=== PATIENT | male | born 1975 | race Caucasian/White ===

== ENCOUNTER 2018-05-02 19:08 | Emergency (ER) | payer MEDICAID ==
[~2018-05-02] VITALS: Ht 172.7 cm; Wt 92.4 kg
[~2018-05-02 19:08] MED LIST: CLOZ100T31 PO; INDLA60C PO; METF-436 PO; OMEP40CA37 PO; OXYB15TA PO; PROP40TA7 PO; RISP0.5T3 PO; TERA5CAP4 PO
[2018-05-02] MEDS ORDERED: LORA1TAB PO (20:00)
[2018-05-02] MEDS ORDERED: LORazepam 1 MG tablet PO ONE (20:20)
[2018-05-02 21:30] LABS: URINE AMPHETAMINE SCREEN NEGATIVE (Neg); URINE BARBITUATE SCREEN NEGATIVE (Neg); URINE BENZODIAZEPINES SCREEN NEGATIVE (Neg); URINE CANNABINOID SCREEN NEGATIVE (Neg); URINE COCAINE SCREEN NEGATIVE (Neg); URINE METHADONE SCREEN NEGATIVE (Neg); URINE OPIATE SCREEN NEGATIVE (Neg); URINE PHENCYCLIDINE SCREEN NEGATIVE (Neg)
[2018-05-02 22:02] LABS: ALBUMIN/GLOBULIN RATIO 1.1 (1.1-1.5); ANION GAP 9 (8-16); ASPARTATE AMINO TRANSFERASE 16 U/L (10-37); BILIRUBIN,TOTAL 0.4 MG/DL (0.1-1.0); BLOOD UREA NITROGEN 4 MG/DL (7-18); BUN/CREATININE RATIO 4.3 (5.4-32.0); CALCIUM 8.9 MG/DL (8.5-10.1); CHLORIDE 100 MMOL/L (99-107); CREATININE 0.92 MG/DL (0.60-1.10); GLUCOSE 79 MG/DL (70-104); POTASSIUM 3.7 MMOL/L (3.5-5.1); SODIUM 135 MMOL/L (135-145); TOTAL CARBON DIOXIDE 26.4 MMOL/L (24-32); TOTAL PROTEIN 7.6 G/DL (6.4-8.2); eGFR 90 ML/MIN
[2018-05-02 22:03] LABS: ALANINE AMINOTRANSFERASE 35 U/L (12-78); ALKALINE PHOSPHATASE 90 IU/L (46-116)
[2018-05-02 22:07] LABS: BASOPHILS % (AUTO) 0.4 % (0-1); EOSINOPHILS # (AUTO) 0.2 X10'3 (0-0.9); EOSINOPHILS % (AUTO) 1.7 % (0-6); HEMATOCRIT 40.4 % (42.0-52.0); HEMOGLOBIN 13.6 g/dl (14.0-17.9); LYMPHOCYTES # (AUTO) 3.6 X10'3 (1.1-4.8); LYMPHOCYTES % (AUTO) 37.1 % (21-51); MEAN CORPUSCULAR HEMOGLOBIN 30.5 PG (27.0-31.0); MEAN CORPUSCULAR HGB CONC 33.7 % (33.0-36.5); MEAN CORPUSCULAR VOLUME 90.5 FL (78-98); MONOCYTES # (AUTO) 1.2 X10'3 (0-0.9); MONOCYTES % (AUTO) 12.4 % (2-12); NEUTROPHILS # (AUTO) 4.6 X10'3 (1.8-7.7); NEUTROPHILS % (AUTO) 48.4 % (42-75); PLATELET COUNT 175 X10'3 (140-440); RED BLOOD COUNT 4.46 X10'6 (4.70-6.10); RED CELL DISTRIBUTION WIDTH 14.9 % (11.5-14.5); WHITE BLOOD COUNT 9.6 X10'3 (4.5-11.0)
[2018-05-02 22:13] LABS: ETHANOL < 0.010 GM/DL (0.0-0.010)
[2018-05-03 05:45] VITALS: BP 138/88
== END 2018-05-03 05:47 | disposition home or self-care (01) ==
LOC: ER 19:08
DX: F20.9 Schizophrenia, unspecified (principal); F41.9 Anxiety disorder, unspecified; I10 Essential (primary) hypertension; E11.9 Type 2 diabetes mellitus without complications; E78.00 Pure hypercholesterolemia, unspecified; Z56.0 Unemployment, unspecified; Z91.030 Bee allergy status; Z79.84 Long term (current) use of oral hypoglycemic drugs; Z79.899 Other long term (current) drug therapy
CPT/HCPCS: 36415; 80053; 80305; 80320; 84443; 85025; 99284

== ENCOUNTER → 2018-11-26 | Outpatient (CLI) | payer MEDICAID ==
[~2018-11-26] MED LIST changes: +LORA1TAB PO
== END | disposition home or self-care (01) ==
LOC: RAD 15:22
PROVIDERS: ATTEND Psychiatry & Neurology Psychiatry
DX: R76.11 Nonspecific reaction to tuberculin skin test without active tuberculosis (principal); E10.9 Type 1 diabetes mellitus without complications; F17.200 Nicotine dependence, unspecified, uncomplicated; Z79.84 Long term (current) use of oral hypoglycemic drugs; Z79.899 Other long term (current) drug therapy
CPT/HCPCS: 71046

== ENCOUNTER 2019-03-05 19:01 | Emergency (ER) | payer MEDICAID ==
[~2019-03-05] VITALS: Ht 172.7 cm; Wt 106.8 kg
[2019-03-05] MEDS ORDERED: normal saline 1000ML IV soln IVB ONE (20:00)
[2019-03-05 23:21] VITALS: BP 122/71
== END 2019-03-05 23:24 | disposition home or self-care (01) ==
LOC: ER 19:01
DX: F10.129 Alcohol abuse with intoxication, unspecified (principal); E78.00 Pure hypercholesterolemia, unspecified; I10 Essential (primary) hypertension; E11.9 Type 2 diabetes mellitus without complications; F41.9 Anxiety disorder, unspecified; F20.9 Schizophrenia, unspecified; Z56.0 Unemployment, unspecified; Z91.030 Bee allergy status; Z79.899 Other long term (current) drug therapy; Y90.9 Presence of alcohol in blood, level not specified
CPT/HCPCS: 99283; J7030; 99281

== ENCOUNTER 2019-04-19 15:34 | Emergency (ER) | payer MEDICAID ==
[~2019-04-19] VITALS: Ht 172.7 cm; Wt 104.5 kg
[2019-04-19] MEDS ORDERED: ATOR20TA66 PO (16:39)
[2019-04-19] MEDS ORDERED: PRAZ2CAP2 PO ×2 (16:39→16:48)
[2019-04-19] MEDS ORDERED: CLOZ200T PO (16:39)
[2019-04-19] MEDS ORDERED: DIVA500T2 PO (16:39)
[2019-04-19] MEDS ORDERED: HYDR-3686 PO ×2 (16:39→16:48)
[2019-04-19] MEDS ORDERED: PRAZ1CAP5 PO ×2 (16:39→16:58)
[2019-04-19 16:40] LABS: BASOPHILS % (AUTO) 0.5 % (0-1); EOSINOPHILS # (AUTO) 0.1 X10'3 (0-0.9); EOSINOPHILS % (AUTO) 1.9 % (0-6); HEMATOCRIT 38.6 % (42.0-52.0); HEMOGLOBIN 13.3 g/dl (14.0-17.9); LYMPHOCYTES # (AUTO) 2.8 X10'3 (1.1-4.8); LYMPHOCYTES % (AUTO) 39.1 % (21-51); MEAN CORPUSCULAR HEMOGLOBIN 30.6 PG (27.0-31.0); MEAN CORPUSCULAR HGB CONC 34.4 g/dL (33.0-36.5); MEAN CORPUSCULAR VOLUME 89.1 FL (78-98); MONOCYTES # (AUTO) 0.7 X10'3 (0-0.9); MONOCYTES % (AUTO) 9.4 % (2-12); NEUTROPHILS # (AUTO) 3.5 X10'3 (1.8-7.7); NEUTROPHILS % (AUTO) 49.1 % (42-75); PLATELET COUNT 171 X10'3 (140-440); RED BLOOD COUNT 4.33 X10'6 (4.70-6.10); RED CELL DISTRIBUTION WIDTH 14.8 % (11.5-14.5); WHITE BLOOD COUNT 7.1 X10'3 (4.5-11.0)
[2019-04-19] MEDS ORDERED: OXYB5TAB11 PO (16:43)
[2019-04-19 16:54] LABS: ALANINE AMINOTRANSFERASE 36 U/L (12-78); ALBUMIN 3.8 G/DL (3.4-5.0); ALBUMIN/GLOBULIN RATIO 1.2 (1.1-1.5); ALKALINE PHOSPHATASE 94 IU/L (46-116); ANION GAP 12 (8-16); ASPARTATE AMINO TRANSFERASE 16 U/L (10-37); BILIRUBIN,TOTAL 0.4 MG/DL (0.1-1.0); BLOOD UREA NITROGEN 7 MG/DL (7-18); BUN/CREATININE RATIO 7.4 (5.4-32.0); CALCIUM 8.9 MG/DL (8.5-10.1); CHLORIDE 102 MMOL/L (99-107); CREATININE 0.94 MG/DL (0.60-1.10); GLUCOSE 121 MG/DL (70-104); SODIUM 135 MMOL/L (135-145); TOTAL CARBON DIOXIDE 20.9 MMOL/L (24-32); TOTAL PROTEIN 7.1 G/DL (6.4-8.2); eGFR 87 ML/MIN
[2019-04-19 17:03] LABS: ETHANOL < 0.010 GM/DL (0.0-0.010)
[2019-04-19 17:11] VITALS: BP 140/110
[2019-04-19 17:19] LABS: CLARITY,URINE CLEAR (Clear); COLOR,URINE STRAW (Yellow); GLUCOSE, URINE NEGATIVE (Neg); KETONES,URINE NEGATIVE (Neg); LEUKOCYTE ESTERASE ,URINE NEGATIVE (Neg); NITRITES, URINE NEGATIVE (Neg); OCCULT BLOOD,URINE NEGATIVE (Neg); PH,URINE 5.5 (4.8-8.0); PROTEIN,URINE NEGATIVE (Neg); UROBILINOGEN,URINE 0.2 E.U/dL (0.2-1.0)
--- NOTE | 2019-04-19 17:21 | NUR ---
PAGED FOR CONSULT FOR [id number]
[2019-04-19 17:25] LABS: UA COLLECTION TYPE CLN CATCH MIDSTREAM
[2019-04-19 17:28] LABS: URINE AMPHETAMINE SCREEN NEGATIVE (Neg); URINE BARBITUATE SCREEN NEGATIVE (Neg); URINE BENZODIAZEPINES SCREEN NEGATIVE (Neg); URINE CANNABINOID SCREEN NEGATIVE (Neg); URINE COCAINE SCREEN NEGATIVE (Neg); URINE METHADONE SCREEN NEGATIVE (Neg); URINE OPIATE SCREEN NEGATIVE (Neg); URINE PHENCYCLIDINE SCREEN NEGATIVE (Neg)
[2019-04-19] MEDS ORDERED: metFORMIN 500mg tablet PO SCH (17:30)
--- NOTE | 2019-04-19 19:18 | NUR ---
INFORMED THAT HE IS ON A 24 HOUR HOLD UNTIL 3 PM TOMORROW BUT THAT IT MAY CHANGE DEPENDING ON [facility]. [facility] CAME DOWN AND WILL BE EVALUATING HIM LATE THIS EVENING FOR PLACEMENT ON INVOLUNTARY HOLD.
[2019-04-19] MEDS ORDERED: oxybutynin 5mg tablet PO SCH (20:00)
[2019-04-19] MEDS ORDERED: hydrOXYzine 25 MG tablet PO SCH (20:00)
[2019-04-19] MEDS ORDERED: LORazepam 1 MG tablet PO SCH (20:00)
[2019-04-19] MEDS ORDERED: propranolol 10mg tablet PO SCH (20:00)
--- NOTE | 2019-04-19 20:55 | NUR ---
PT SEEN AND EVALUATED BY [facility]. THE PATIENT CONTINUOUSLY DENIED SI/HI, HE REPORTS FEELING DEPRESSED BUT CAME HERE TO TALK TO SOMEONE. THE PATIENT AGREED TO FOLLOW-UP W/ OUTPATIENT MENTAL HEALTH SERVICES IN THE MORNING. THE PATIENT SAYS THAT HE WILL RIDE HIS BIKE HOME AND IS EXCITED TO TAKE CARE OF HIS ANIMALS WHEN HE RETURNS HOME.
[2019-04-19] MEDS ORDERED: prazosin 1mg capsule PO SCH (21:00)
[2019-04-19] MEDS ORDERED: CLOZAPINE 100 MG TAB.RAPDIS PO SCH (21:00)
[2019-04-19] MEDS ORDERED: divalproex sodium 500mg tablet.DR PO SCH (21:00)
[2019-04-20] MEDS ORDERED: atorvastatin 20mg tablet PO SCH (08:00)
[2019-04-20] MEDS ORDERED: prazosin 1mg capsule PO SCH (08:00)
[2019-04-20] MEDS ORDERED: CLOZAPINE 100 MG TAB.RAPDIS PO SCH (08:00)
== END 2019-04-19 21:25 | disposition home or self-care (01) ==
LOC: ER 15:35
DX: R45.851 Suicidal ideations (principal); F20.9 Schizophrenia, unspecified; F22 Delusional disorders; E78.00 Pure hypercholesterolemia, unspecified; I10 Essential (primary) hypertension; E11.9 Type 2 diabetes mellitus without complications; F41.9 Anxiety disorder, unspecified; Z56.0 Unemployment, unspecified; Z79.899 Other long term (current) drug therapy
CPT/HCPCS: 36415; 80053; 80305; 80320; 81003; 84443; 85025; 99284; Q0177

== ENCOUNTER 2020-01-12 09:12 | Outpatient (CLI) | payer MEDICAID ==
[~2020-01-12 09:12] MED LIST changes: +ATOR20TA66 PO; +CLOZ200T PO; +DIVA500T2 PO; +HYDR-3686 PO; -INDLA60C PO; -OMEP40CA37 PO; -OXYB15TA PO; +OXYB5TAB16 PO; +PRAZ1CAP5 PO; +PRAZ2CAP2 PO; -RISP0.5T3 PO; -TERA5CAP4 PO
== END 2020-01-12 23:59 | disposition home or self-care (01) ==
LOC: RAD 09:12
PROVIDERS: ATTEND Psychiatry & Neurology Psychiatry
DX: R76.11 Nonspecific reaction to tuberculin skin test without active tuberculosis (principal)
CPT/HCPCS: 71046

== ENCOUNTER 2020-02-22 10:12 | Emergency (ER) | payer MEDICAID ==
[~2020-02-22] VITALS: Ht 172.7 cm; Wt 97.6 kg
[2020-02-22 10:19] VITALS: BP 124/86
[2020-02-22] MEDS ORDERED: amox tr/potassium clavulanate 875/125mg TAB PO ONE (10:35)
[2020-02-22] MEDS ORDERED: TETanus/Pertussis (Acell)/Diphther VAC/PF (Tdap-Adult) 0.5ml syringe IMVAC ONE (10:35)
[2020-02-22 10:50] LABS: CLARITY,URINE TURBID (Clear); COLOR,URINE AMBER (Yellow); GLUCOSE, URINE 250 mg/dl (Neg); KETONES,URINE 15 mg/dl (Neg); LEUKOCYTE ESTERASE ,URINE NEGATIVE (Neg); OCCULT BLOOD,URINE LARGE (Neg); PH,URINE 6.5 (4.8-8.0); PROTEIN,URINE >=300 mg/dl (Neg); UA COLLECTION TYPE CLN CATCH MIDSTREAM
[2020-02-22 10:55] LABS: NITRITES, URINE NEGATIVE (Neg)
[2020-02-22 10:56] LABS: RBC,URINE TNTC /HPF (0-2)
[2020-02-22 11:04] LABS: BACTERIA,URINE 2+ /HPF (Neg); SQUAMOUS EPITHELIAL CELL,UR FEW /LPF (FEW)
[2020-02-22 11:05] LABS: MUCUS STRANDS FEW /LPF (Neg); WBC,URINE 0-4 /HPF (0-4)
[2020-02-22 11:38] LABS: BASOPHILS # (AUTO) 0.1 X10'3 (0-0.2); BASOPHILS % (AUTO) 0.7 % (0-1); EOSINOPHILS # (AUTO) 0.1 X10'3 (0-0.9); EOSINOPHILS % (AUTO) 1.3 % (0-6); HEMATOCRIT 41.9 % (42.0-52.0); HEMOGLOBIN 14.4 g/dl (14.0-17.9); LYMPHOCYTES % (AUTO) 21.6 % (21-51); MEAN CORPUSCULAR HGB CONC 34.5 g/dL (33.0-36.5); MEAN CORPUSCULAR VOLUME 86.9 FL (78-98); MEAN PLATELET VOLUME 9.3 FL (7.4-10.4); MONOCYTES % (AUTO) 11.2 % (2-12); NEUTROPHILS # (AUTO) 5.9 X10'3 (1.8-7.7); NEUTROPHILS % (AUTO) 65.2 % (42-75); PLATELET COUNT 182 X10'3 (140-440); RED BLOOD COUNT 4.82 X10'6 (4.70-6.10); RED CELL DISTRIBUTION WIDTH 14.9 % (11.5-14.5); WHITE BLOOD COUNT 9.1 X10'3 (4.5-11.0)
[2020-02-22 12:15] LABS: ALANINE AMINOTRANSFERASE 24 U/L (12-78); ALBUMIN 3.7 G/DL (3.4-5.0); ALKALINE PHOSPHATASE 115 IU/L (46-116); ANION GAP 9 (8-16); ASPARTATE AMINO TRANSFERASE 17 U/L (10-37); BILIRUBIN,TOTAL 0.6 MG/DL (0.1-1.0); BLOOD UREA NITROGEN 12 MG/DL (7-18); BUN/CREATININE RATIO 10.3 (5.4-32.0); CHLORIDE 102 MMOL/L (99-107); CREATININE 1.17 MG/DL (0.60-1.10); GLUCOSE 138 MG/DL (70-104); POTASSIUM 3.9 MMOL/L (3.5-5.1); SODIUM 136 MMOL/L (135-145); TOTAL CARBON DIOXIDE 24.8 MMOL/L (24-32); TOTAL PROTEIN 7.5 G/DL (6.4-8.2); eGFR 67 ML/MIN
[2020-02-22] MEDS ORDERED: AMOX-422 PO (12:33)
== END 2020-02-22 12:55 | disposition home or self-care (01) ==
LOC: ER 10:13
DX: S40.811A Abrasion of right upper arm, initial encounter (principal); R31.9 Hematuria, unspecified; L03.113 Cellulitis of right upper limb; E78.00 Pure hypercholesterolemia, unspecified; I10 Essential (primary) hypertension; E11.9 Type 2 diabetes mellitus without complications; F41.9 Anxiety disorder, unspecified; F20.9 Schizophrenia, unspecified; W55.03XA Scratched by cat, initial encounter; Y93.89 Activity, other specified; Y92.89 Other specified places as the place of occurrence of the external cause; Y99.8 Other external cause status; Z56.0 Unemployment, unspecified; Z79.899 Other long term (current) drug therapy
CPT/HCPCS: 36415; 74176; 80053; 81001; 85025; 90471; 90715; 99284

== ENCOUNTER 2020-06-11 20:49 | Emergency (ER) | payer MEDICAID ==
[~2020-06-11] VITALS: Ht 172.7 cm; Wt 100.0 kg
[2020-06-11 20:52] VITALS: BP 138/94
== END 2020-06-11 21:32 | disposition home or self-care (01) ==
LOC: ER 20:49
DX: R50.9 Fever, unspecified (principal); M79.18 Myalgia, other site; R06.00 Dyspnea, unspecified; E78.00 Pure hypercholesterolemia, unspecified; I10 Essential (primary) hypertension; F41.9 Anxiety disorder, unspecified; F20.9 Schizophrenia, unspecified; Z20.828 Contact with and (suspected) exposure to other viral communicable diseases; Z60.2 Problems related to living alone; Z72.89 Other problems related to lifestyle; Z79.84 Long term (current) use of oral hypoglycemic drugs; Z79.899 Other long term (current) drug therapy
CPT/HCPCS: 36415; 99283; U0003

== ENCOUNTER 2021-01-16 14:09 | Outpatient (CLI) | payer MEDICAID | END 2021-01-16 23:59 | disposition home or self-care (01) | LOC: RAD 14:09 | PROVIDERS: ATTEND Psychiatry & Neurology Psychiatry | DX: F20.0 Paranoid schizophrenia (principal); F10.29 Alcohol dependence with unspecified alcohol-induced disorder | CPT/HCPCS: 71046 ==

== ENCOUNTER 2022-02-11 13:04 | Emergency (ER) | payer MEDICAID ==
[~2022-02-11] VITALS: Ht 172.7 cm; Wt 233.6 kg
[2022-02-11 13:11] VITALS: BP 145/97
== END 2022-02-11 13:51 | disposition home or self-care (01) ==
LOC: ER 13:05
DX: R44.3 Hallucinations, unspecified (principal); E78.00 Pure hypercholesterolemia, unspecified; I10 Essential (primary) hypertension; E11.9 Type 2 diabetes mellitus without complications; F41.9 Anxiety disorder, unspecified; Z56.0 Unemployment, unspecified; Z72.89 Other problems related to lifestyle; Z79.899 Other long term (current) drug therapy; Z91.030 Bee allergy status
CPT/HCPCS: 71045; 99283

== ENCOUNTER 2022-04-26 21:06 | Emergency (ER) | payer MEDICAID ==
[~2022-04-26] VITALS: Ht 172.7 cm; Wt 104.5 kg
[2022-04-26 22:55] LABS: BASOPHILS % (AUTO) 0.3 % (0-1); EOSINOPHILS # (AUTO) 0.1 X10'3 (0-0.9); EOSINOPHILS % (AUTO) 1.7 % (0-6); HEMOGLOBIN 13.2 g/dl (14.0-17.9); LYMPHOCYTES # (AUTO) 2.5 X10'3 (1.1-4.8); LYMPHOCYTES % (AUTO) 39.4 % (21-51); MEAN CORPUSCULAR HEMOGLOBIN 28.9 PG (27.0-31.0); MEAN CORPUSCULAR VOLUME 87.7 FL (78-98); MONOCYTES # (AUTO) 0.6 X10'3 (0-0.9); MONOCYTES % (AUTO) 9.2 % (2-12); NEUTROPHILS # (AUTO) 3.1 X10'3 (1.8-7.7); NEUTROPHILS % (AUTO) 49.4 % (42-75); PLATELET COUNT 212 X10'3 (140-440); RED BLOOD COUNT 4.56 X10'6 (4.70-6.10); RED CELL DISTRIBUTION WIDTH 15.5 % (11.5-14.5); WHITE BLOOD COUNT 6.3 X10'3 (4.5-11.0)
[2022-04-26 23:12] LABS: ALANINE AMINOTRANSFERASE 53 U/L (12-78); ALBUMIN 3.8 G/DL (3.4-5.0); ALBUMIN/GLOBULIN RATIO 1.2 (1.1-1.5); ALKALINE PHOSPHATASE 97 IU/L (46-116); ANION GAP 13 (8-16); ASPARTATE AMINO TRANSFERASE 25 U/L (10-37); BILIRUBIN,TOTAL 0.2 MG/DL (0.1-1.0); BLOOD UREA NITROGEN 7 MG/DL (7-18); BUN/CREATININE RATIO 7.4 (5.4-32.0); CALCIUM 8.4 MG/DL (8.5-10.1); CHLORIDE 108 MMOL/L (99-107); CREATININE 0.94 MG/DL (0.60-1.10); GLUCOSE 97 MG/DL (70-104); SODIUM 143 MMOL/L (135-145); TOTAL CARBON DIOXIDE 21.9 MMOL/L (24-32); TOTAL PROTEIN 7.1 G/DL (6.4-8.2); eGFR 86 ML/MIN
[2022-04-26 23:13] LABS: POTASSIUM 3.9 MMOL/L (3.5-5.1)
--- NOTE | 2022-04-26 23:37 | NUR ---
PT DENYING ANY SUICIDAL OR HOMICIDAL IDEATION. STATES HE HEARS VOICES BUT THEY DO NOT TELL HIM TO HURT HIMSELF OR ANYONE. NOTES WNATING TO GO HOME.
[2022-04-26 23:38] VITALS: BP 114/88
== END 2022-04-26 23:41 | disposition home or self-care (01) ==
LOC: ER 21:06
DX: F20.0 Paranoid schizophrenia (principal); E78.00 Pure hypercholesterolemia, unspecified; I10 Essential (primary) hypertension; E11.9 Type 2 diabetes mellitus without complications; F41.9 Anxiety disorder, unspecified; Z91.030 Bee allergy status
CPT/HCPCS: 36415; 80053; 85025; 99283

== ENCOUNTER 2022-10-24 16:53 | Emergency (ER) | payer MEDICAID ==
[~2022-10-24] VITALS: Ht 172.7 cm; Wt 100.0 kg
[~2022-10-24 16:53] MED LIST changes: -CLOZ100T31 PO; +CLOZ100T68 PO; -CLOZ200T PO; +CLOZ200T8 PO
[2022-10-24 16:59] VITALS: BP 127/66
== END 2022-10-24 22:36 | disposition left against medical advice (07) ==
LOC: ER 16:54
DX: F29 Unspecified psychosis not due to a substance or known physiological condition (principal); Z20.822 Contact with and (suspected) exposure to COVID-19; Z53.21 Procedure and treatment not carried out due to patient leaving prior to being seen by health care provider
CPT/HCPCS: 87811

== ENCOUNTER 2023-07-30 16:03 | Emergency (ER) | payer MEDICAID ==
[~2023-07-30] VITALS: Ht 173.4 cm; Wt 92.7 kg
[2023-07-30 16:37] VITALS: BP 134/84; PULSE 101; TEMP 99.1; O2SAT 99
[2023-07-30] MEDS ORDERED: DOXY150T5 PO (18:36)
[2023-07-30] MEDS ORDERED: NAPR-56 PO (18:36)
[2023-07-30] MEDS ORDERED: ketorolac tromethamine 15mg/ml inj. IM ONE (18:40)
[2023-07-30 18:46] VITALS: RESP 19
== END 2023-07-30 18:56 | disposition home or self-care (01) ==
LOC: ER 16:04
DX: K04.7 Periapical abscess without sinus (principal); I10 Essential (primary) hypertension; E78.00 Pure hypercholesterolemia, unspecified; E11.9 Type 2 diabetes mellitus without complications; F20.9 Schizophrenia, unspecified; F41.9 Anxiety disorder, unspecified; Z59.00 Homelessness unspecified; Z91.030 Bee allergy status
CPT/HCPCS: 96372; 99283; J1885

== ENCOUNTER 2023-11-07 19:33 | Emergency (ER) | payer MEDICAID ==
[~2023-11-07] VITALS: Ht 172.7 cm; Wt 100.0 kg
[2023-11-07] MEDS ORDERED: diphenhydrAMINE 25mg capsule PO ONE (22:40)
[2023-11-07] MEDS ORDERED: ziprasidone 20mg capsule PO ONE (22:40)
[2023-11-07] MEDS ORDERED: LORazepam 1 MG tablet PO ONE (22:40)
[2023-11-07 23:23] LABS: BILIRUBIN,URINE NEGATIVE (Neg); CLARITY,URINE CLEAR (Clear); COLOR,URINE STRAW (Yellow); GLUCOSE, URINE NEGATIVE (Neg); KETONES,URINE NEGATIVE (Neg); LEUKOCYTE ESTERASE ,URINE NEGATIVE (Neg); NITRITES, URINE NEGATIVE (Neg); OCCULT BLOOD,URINE NEGATIVE (Neg); PROTEIN,URINE NEGATIVE (Neg); UROBILINOGEN,URINE 0.2 E.U/dL (0.2-1.0)
[2023-11-07 23:24] LABS: UA COLLECTION TYPE CLN CATCH MIDSTREAM
[2023-11-07 23:32] LABS: URINE AMPHETAMINE SCREEN POSITIVE (Neg); URINE BARBITUATE SCREEN NEGATIVE (Neg); URINE BENZODIAZEPINES SCREEN NEGATIVE (Neg); URINE CANNABINOID SCREEN NEGATIVE (Neg); URINE COCAINE SCREEN NEGATIVE (Neg); URINE METHADONE SCREEN NEGATIVE (Neg); URINE OPIATE SCREEN NEGATIVE (Neg); URINE PHENCYCLIDINE SCREEN NEGATIVE (Neg)
[2023-11-07 23:39] LABS: EOSINOPHILS # (AUTO) 0.2 X10'3 (0-0.9); HEMOGLOBIN 12.5 g/dl (14.0-17.9); MEAN PLATELET VOLUME 8.6 FL (7.4-10.4)
[2023-11-07 23:41] LABS: BASOPHILS % (AUTO) 0.5 % (0-1); EOSINOPHILS % (AUTO) 2.6 % (0-6); HEMATOCRIT 37.5 % (42.0-52.0); LYMPHOCYTES # (AUTO) 2.1 X10'3 (1.1-4.8); LYMPHOCYTES % (AUTO) 27.5 % (21-51); MEAN CORPUSCULAR HEMOGLOBIN 29.3 PG (27.0-31.0); MEAN CORPUSCULAR HGB CONC 33.3 g/dL (33.0-36.5); MEAN CORPUSCULAR VOLUME 87.9 FL (78-98); MONOCYTES # (AUTO) 0.8 X10'3 (0-0.9); NEUTROPHILS # (AUTO) 4.4 X10'3 (1.8-7.7); NEUTROPHILS % (AUTO) 58.4 % (42-75); PLATELET COUNT 161 X10'3 (140-440); RED BLOOD COUNT 4.26 X10'6 (4.70-6.10); RED CELL DISTRIBUTION WIDTH 15.8 % (11.5-14.5); WHITE BLOOD COUNT 7.5 X10'3 (4.5-11.0)
[2023-11-07 23:51] LABS: ALANINE AMINOTRANSFERASE 45 U/L (12-78); ALBUMIN 3.4 G/DL (3.4-5.0); ALBUMIN/GLOBULIN RATIO 1.1 (1.1-1.5); ALKALINE PHOSPHATASE 127 IU/L (46-116); ANION GAP 7 (8-16); ASPARTATE AMINO TRANSFERASE 62 U/L (10-37); BILIRUBIN,TOTAL 0.7 MG/DL (0.1-1.0); BLOOD UREA NITROGEN 15 MG/DL (7-18); BUN/CREATININE RATIO 15.5 (10.0-20.0); CALCIUM 8.6 MG/DL (8.5-10.1); CHLORIDE 103 MMOL/L (99-107); CREATININE 0.97 MG/DL (0.60-1.10); GLUCOSE 144 MG/DL (70-104); POTASSIUM 3.9 MMOL/L (3.5-5.1); SODIUM 136 MMOL/L (135-145); TOTAL CARBON DIOXIDE 26.1 MMOL/L (24-32); TOTAL PROTEIN 6.6 G/DL (6.4-8.2); eCRCL 89 ML/MIN; eGFR 82 ML/MIN
[2023-11-08] LABS: ETHANOL < 10 MG/DL (<10); THYROID STIMULATING HORMONE 2.02 ulU/ml (0.34-4.50)
[2023-11-08] MEDS ORDERED: CLOZ200T8 PO (01:12)
[2023-11-08] MEDS ORDERED: PRAZ2CAP2 PO (01:16)
[2023-11-08] MEDS ORDERED: CARI1.5C PO (01:16)
[2023-11-08] MEDS ORDERED: HYDR50TA65 PO (01:16)
[2023-11-08 05:16] VITALS: BP 129/68; PULSE 91; TEMP 97.1; O2SAT 99
[2023-11-08] MEDS ORDERED: clozapine 100mg tablet PO SCH ×2 (08:00→21:00)
[2023-11-08] MEDS ORDERED: atorvastatin 20mg tablet PO SCH (08:00)
[2023-11-08] MEDS ORDERED: hydrOXYzine 25 MG tablet PO SCH (08:00)
[2023-11-08] MEDS ORDERED: CARIPRAZINE 1.5 MG CAPSULE PO SCH (08:00)
[2023-11-08] MEDS ORDERED: prazosin 1mg capsule PO SCH (08:00)
[2023-11-08 09:17] VITALS: RESP 19
== END 2023-11-08 12:59 | disposition home or self-care (01) ==
LOC: ER 19:33
DX: R44.2 Other hallucinations (principal); Z20.822 Contact with and (suspected) exposure to COVID-19; F41.9 Anxiety disorder, unspecified; I10 Essential (primary) hypertension; E11.9 Type 2 diabetes mellitus without complications; E78.00 Pure hypercholesterolemia, unspecified; F20.9 Schizophrenia, unspecified; F12.10 Cannabis abuse, uncomplicated; Z59.00 Homelessness unspecified; Z56.0 Unemployment, unspecified
CPT/HCPCS: 36415; 80053; 80305; 80320; 81003; 84443; 85025; 87811; 99284; Q0163; Q0177; 99285

== ENCOUNTER 2023-12-26 16:58 | Emergency (ER) | payer MEDICAID ==
[~2023-12-26] VITALS: Ht 172.7 cm; Wt 99.2 kg
[~2023-12-26 16:58] MED LIST changes: +CARI1.5C PO; -DIVA500T2 PO; -HYDR-3686 PO; +HYDR50TA65 PO; -LORA1TAB PO; -METF-436 PO; -OXYB5TAB16 PO; -PRAZ1CAP5 PO; -PROP40TA7 PO
[2023-12-26 17:09] VITALS: BP 131/85; PULSE 89; RESP 15; TEMP 98.5; O2SAT 97
[2023-12-26 17:52] LABS: BASOPHILS % (AUTO) 0.7 % (0-1); EOSINOPHILS # (AUTO) 0.1 X10'3 (0-0.9); EOSINOPHILS % (AUTO) 1.4 % (0-6); HEMATOCRIT 37.9 % (42.0-52.0); HEMOGLOBIN 12.6 g/dl (14.0-17.9); LYMPHOCYTES # (AUTO) 2.3 X10'3 (1.1-4.8); LYMPHOCYTES % (AUTO) 32.3 % (21-51); MEAN CORPUSCULAR HEMOGLOBIN 28.8 PG (27.0-31.0); MEAN CORPUSCULAR HGB CONC 33.3 g/dL (33.0-36.5); MEAN CORPUSCULAR VOLUME 86.6 FL (78-98); MEAN PLATELET VOLUME 8.5 FL (7.4-10.4); MONOCYTES # (AUTO) 0.7 X10'3 (0-0.9); MONOCYTES % (AUTO) 9.5 % (2-12); NEUTROPHILS % (AUTO) 56.1 % (42-75); PLATELET COUNT 169 X10'3 (140-440); RED BLOOD COUNT 4.37 X10'6 (4.70-6.10); RED CELL DISTRIBUTION WIDTH 14.3 % (11.5-14.5); WHITE BLOOD COUNT 7.2 X10'3 (4.5-11.0)
[2023-12-26 18:02] LABS: ALANINE AMINOTRANSFERASE 41 U/L (12-78); ALBUMIN 3.7 G/DL (3.4-5.0); ALBUMIN/GLOBULIN RATIO 1.2 (1.1-1.5); ALKALINE PHOSPHATASE 105 IU/L (46-116); ANION GAP 8 (8-16); ASPARTATE AMINO TRANSFERASE 21 U/L (10-37); BILIRUBIN,TOTAL 0.4 MG/DL (0.1-1.0); BLOOD UREA NITROGEN 5 MG/DL (7-18); BUN/CREATININE RATIO 5.2 (10.0-20.0); CALCIUM 8.7 MG/DL (8.5-10.1); CHLORIDE 101 MMOL/L (99-107); CREATININE 0.97 MG/DL (0.60-1.10); GLUCOSE 96 MG/DL (70-104); POTASSIUM 3.8 MMOL/L (3.5-5.1); SODIUM 136 MMOL/L (135-145); TOTAL CARBON DIOXIDE 26.6 MMOL/L (24-32); TOTAL PROTEIN 6.8 G/DL (6.4-8.2); eCRCL 89 ML/MIN; eGFR 82 ML/MIN
[2023-12-26 18:05] LABS: ACETAMINOPHEN < 2.0 UG/ML (10-30)
[2023-12-26 18:06] LABS: ETHANOL < 10 MG/DL (<10)
[2023-12-26 18:06] LABS: URINE AMPHETAMINE SCREEN NEGATIVE (Neg); URINE BARBITUATE SCREEN NEGATIVE (Neg); URINE BENZODIAZEPINES SCREEN NEGATIVE (Neg); URINE CANNABINOID SCREEN NEGATIVE (Neg); URINE COCAINE SCREEN NEGATIVE (Neg); URINE METHADONE SCREEN NEGATIVE (Neg); URINE OPIATE SCREEN NEGATIVE (Neg); URINE PHENCYCLIDINE SCREEN NEGATIVE (Neg)
== END 2023-12-26 21:14 | disposition left against medical advice (07) ==
LOC: ER 16:59
DX: R44.3 Hallucinations, unspecified (principal); Z53.21 Procedure and treatment not carried out due to patient leaving prior to being seen by health care provider
CPT/HCPCS: 36415; 80053; 80305; 80320; 80329; 85025; 99281

== ENCOUNTER 2024-02-04 16:54 | Emergency (ER) | payer MEDICAID ==
[~2024-02-04] VITALS: Ht 172.7 cm; Wt 99.2 kg
[2024-02-04 18:03] LABS: URINE AMPHETAMINE SCREEN NEGATIVE (Neg); URINE BARBITUATE SCREEN NEGATIVE (Neg); URINE BENZODIAZEPINES SCREEN NEGATIVE (Neg); URINE CANNABINOID SCREEN NEGATIVE (Neg); URINE COCAINE SCREEN NEGATIVE (Neg); URINE METHADONE SCREEN NEGATIVE (Neg); URINE OPIATE SCREEN NEGATIVE (Neg); URINE PHENCYCLIDINE SCREEN NEGATIVE (Neg)
[2024-02-04 18:33] LABS: BASOPHILS # (AUTO) 0.1 X10'3 (0-0.2); EOSINOPHILS # (AUTO) 0.1 X10'3 (0-0.9)
[2024-02-04 18:35] LABS: BASOPHILS % (AUTO) 0.8 % (0-1); EOSINOPHILS % (AUTO) 2.1 % (0-6); HEMATOCRIT 36.4 % (42.0-52.0); HEMOGLOBIN 12.4 g/dl (14.0-17.9); LYMPHOCYTES # (AUTO) 2.2 X10'3 (1.1-4.8); LYMPHOCYTES % (AUTO) 31.8 % (21-51); MEAN CORPUSCULAR HEMOGLOBIN 29.3 PG (27.0-31.0); MEAN CORPUSCULAR HGB CONC 34.1 g/dL (33.0-36.5); MEAN CORPUSCULAR VOLUME 85.9 FL (78-98); MEAN PLATELET VOLUME 8.8 FL (7.4-10.4); MONOCYTES # (AUTO) 0.6 X10'3 (0-0.9); MONOCYTES % (AUTO) 8.2 % (2-12); NEUTROPHILS % (AUTO) 57.1 % (42-75); PLATELET COUNT 156 X10'3 (140-440); RED BLOOD COUNT 4.24 X10'6 (4.70-6.10); RED CELL DISTRIBUTION WIDTH 14.9 % (11.5-14.5); WHITE BLOOD COUNT 6.9 X10'3 (4.5-11.0)
[2024-02-04 19:49] LABS: ALBUMIN 3.7 G/DL (3.4-5.0); ANION GAP 11 (8-16); BLOOD UREA NITROGEN 7 MG/DL (7-18); BUN/CREATININE RATIO 7.5 (10.0-20.0); CALCIUM 8.7 MG/DL (8.5-10.1); CHLORIDE 103 MMOL/L (99-107); CREATININE 0.93 MG/DL (0.60-1.10); ETHANOL 22 MG/DL (<10); GLUCOSE 89 MG/DL (70-104); POTASSIUM 3.6 MMOL/L (3.5-5.1); SODIUM 140 MMOL/L (135-145); TOTAL CARBON DIOXIDE 25.9 MMOL/L (24-32); eCRCL 93 ML/MIN; eGFR 86 ML/MIN
[2024-02-04] MEDS ORDERED: CLOZ50TA9 PO (21:03)
[2024-02-05 05:07] VITALS: PULSE 78
[2024-02-05] MEDS: prazosin 1mg capsule PO SCH (08:37)
[2024-02-05] MEDS: hydrOXYzine 25 MG tablet PO SCH (08:37)
[2024-02-05] MEDS: atorvastatin 20mg tablet PO SCH (08:37)
[2024-02-05] MEDS: clozapine 25mg tablet PO PRN (08:38)
[2024-02-05] MEDS: clozapine 100mg tablet PO SCH (08:38)
[2024-02-05] MEDS: CARIPRAZINE 1.5 MG CAPSULE PO SCH (08:39)
[2024-02-05 10:17] VITALS: BP 117/76; RESP 16; TEMP 97.4; O2SAT 98
[2024-02-05] MEDS ORDERED: clozapine 100mg tablet PO SCH (21:00)
== END 2024-02-05 10:19 | disposition still patient (30) ==
LOC: ER 16:55
DX: F20.9 Schizophrenia, unspecified (principal); F15.90 Other stimulant use, unspecified, uncomplicated; F10.90 Alcohol use, unspecified, uncomplicated; E78.00 Pure hypercholesterolemia, unspecified; I10 Essential (primary) hypertension; E11.9 Type 2 diabetes mellitus without complications; F41.9 Anxiety disorder, unspecified; Z20.822 Contact with and (suspected) exposure to COVID-19; Z56.0 Unemployment, unspecified; Z91.030 Bee allergy status; Z79.899 Other long term (current) drug therapy; Z79.2 Long term (current) use of antibiotics
CPT/HCPCS: 36415; 80048; 80305; 80320; 85025; 87811; 99285; Q0177

== ENCOUNTER 2024-02-20 20:18 | Emergency (ER) | payer MEDICAID ==
[~2024-02-20] VITALS: Ht 172.7 cm; Wt 90.0 kg
[~2024-02-20 20:18] MED LIST changes: +CLOZ50TA9 PO
[2024-02-20 20:22] VITALS: TEMP 97.8
[2024-02-20] MEDS ORDERED: CLOZAPINE 25 MG oral disintegrating tablet PO SCH (23:55)
[2024-02-21 00:35] LABS: BASOPHILS # (AUTO) 0.1 X10'3 (0-0.2); BASOPHILS % (AUTO) 0.7 % (0-1); EOSINOPHILS # (AUTO) 0.2 X10'3 (0-0.9); EOSINOPHILS % (AUTO) 2.4 % (0-6); HEMOGLOBIN 13.3 g/dl (14.0-17.9); LYMPHOCYTES # (AUTO) 2.7 X10'3 (1.1-4.8); LYMPHOCYTES % (AUTO) 35.7 % (21-51); MEAN CORPUSCULAR HEMOGLOBIN 28.7 PG (27.0-31.0); MEAN CORPUSCULAR HGB CONC 33.4 g/dL (33.0-36.5); MEAN CORPUSCULAR VOLUME 86.2 FL (78-98); MEAN PLATELET VOLUME 8.4 FL (7.4-10.4); MONOCYTES # (AUTO) 0.7 X10'3 (0-0.9); MONOCYTES % (AUTO) 9.3 % (2-12); NEUTROPHILS # (AUTO) 3.9 X10'3 (1.8-7.7); NEUTROPHILS % (AUTO) 51.9 % (42-75); PLATELET COUNT 177 X10'3 (140-440); RED BLOOD COUNT 4.64 X10'6 (4.70-6.10); WHITE BLOOD COUNT 7.5 X10'3 (4.5-11.0)
[2024-02-21 00:37] LABS: BILIRUBIN,URINE NEGATIVE (Neg); CLARITY,URINE CLEAR (Clear); COLOR,URINE STRAW (Yellow); GLUCOSE, URINE NEGATIVE (Neg); KETONES,URINE NEGATIVE (Neg); LEUKOCYTE ESTERASE ,URINE NEGATIVE (Neg); NITRITES, URINE NEGATIVE (Neg); OCCULT BLOOD,URINE NEGATIVE (Neg); PROTEIN,URINE NEGATIVE (Neg); UROBILINOGEN,URINE 0.2 E.U/dL (0.2-1.0)
[2024-02-21 00:40] LABS: UA COLLECTION TYPE CLN CATCH MIDSTREAM
[2024-02-21 00:42] LABS: ALBUMIN 3.9 G/DL (3.4-5.0); ANION GAP 7 (8-16); BLOOD UREA NITROGEN 7 MG/DL (7-18); CALCIUM 9.3 MG/DL (8.5-10.1); CHLORIDE 110 MMOL/L (99-107); ETHANOL < 10 MG/DL (<10); GLUCOSE 100 MG/DL (70-104); POTASSIUM 3.7 MMOL/L (3.5-5.1); SODIUM 144 MMOL/L (135-145); TOTAL CARBON DIOXIDE 27.3 MMOL/L (24-32); eCRCL 86 ML/MIN; eGFR 79 ML/MIN
[2024-02-21 00:46] LABS: URINE AMPHETAMINE SCREEN NEGATIVE (Neg); URINE BARBITUATE SCREEN NEGATIVE (Neg); URINE BENZODIAZEPINES SCREEN NEGATIVE (Neg); URINE CANNABINOID SCREEN NEGATIVE (Neg); URINE COCAINE SCREEN NEGATIVE (Neg); URINE METHADONE SCREEN NEGATIVE (Neg); URINE OPIATE SCREEN NEGATIVE (Neg); URINE PHENCYCLIDINE SCREEN NEGATIVE (Neg)
[2024-02-21] MEDS: CLOZAPINE 100 MG TAB.RAPDIS PO SCH (01:59)
[2024-02-21] MEDS: quetiapine 100mg tablet PO ONE ×2 (02:19→07:21)
[2024-02-21] MEDS ORDERED: OXYB2.5T PO (09:50)
[2024-02-21] MEDS ORDERED: clozapine 100mg tablet PO ONE (11:35)
[2024-02-21] MEDS: CLOZAPINE 100 MG TAB.RAPDIS PO ONE (11:36)
[2024-02-21 12:53] VITALS: BP 143/96; PULSE 87; RESP 18; O2SAT 100
[2024-02-22] MEDS ORDERED: clozapine 100mg tablet PO SCH (08:00)
== END 2024-02-21 15:19 | disposition home or self-care (01) ==
LOC: ER 20:19
DX: R45.851 Suicidal ideations (principal); F29 Unspecified psychosis not due to a substance or known physiological condition; Z20.822 Contact with and (suspected) exposure to COVID-19; I10 Essential (primary) hypertension; F31.9 Bipolar disorder, unspecified; F20.9 Schizophrenia, unspecified; F15.10 Other stimulant abuse, uncomplicated; Z91.030 Bee allergy status; Z79.899 Other long term (current) drug therapy
CPT/HCPCS: 36415; 80048; 80305; 80320; 81003; 85025; 87811; 99284; C2617; 99285

== ENCOUNTER 2024-05-08 13:07 | Emergency (ER) | payer MEDICAID ==
[~2024-05-08] VITALS: Ht 172.7 cm; Wt 100.3 kg
[~2024-05-08 13:07] MED LIST changes: +CLOZ100T14 PO; -CLOZ100T68 PO; -CLOZ50TA9 PO; -HYDR50TA65 PO; +OXYB2.5T PO; -PRAZ2CAP2 PO
[2024-05-08 13:12] VITALS: BP 171/78; PULSE 100; RESP 16; TEMP 98; O2SAT 98
== END 2024-05-08 14:24 | disposition home or self-care (01) ==
LOC: ER 13:08
DX: R07.89 Other chest pain (principal); E78.00 Pure hypercholesterolemia, unspecified; I10 Essential (primary) hypertension; E11.9 Type 2 diabetes mellitus without complications; F15.90 Other stimulant use, unspecified, uncomplicated; Z91.030 Bee allergy status; Z79.899 Other long term (current) drug therapy
CPT/HCPCS: 99281

== ENCOUNTER 2024-12-18 20:37 | Emergency (ER) | payer MEDICAID ==
[~2024-12-18] VITALS: Ht 172.7 cm; Wt 91.5 kg
[2024-12-18 20:39] VITALS: PULSE 70; RESP 20; TEMP 98.6; O2SAT 96
== END 2024-12-18 22:41 | disposition left against medical advice (07) ==
LOC: ER 20:37
DX: F28 Other psychotic disorder not due to a substance or known physiological condition (principal); Z91.030 Bee allergy status; Z53.21 Procedure and treatment not carried out due to patient leaving prior to being seen by health care provider

== ENCOUNTER 2025-01-11 16:45 | Emergency (ER) | payer MEDICAID ==
[~2025-01-11] VITALS: Ht 172.7 cm; Wt 100.0 kg
[2025-01-11 17:52] LABS: BILIRUBIN,URINE NEGATIVE (Neg); CLARITY,URINE CLEAR (Clear); COLOR,URINE YELLOW (Yellow); GLUCOSE, URINE NEGATIVE (Neg); KETONES,URINE NEGATIVE (Neg); LEUKOCYTE ESTERASE ,URINE NEGATIVE (Neg); NITRITES, URINE NEGATIVE (Neg); OCCULT BLOOD,URINE NEGATIVE (Neg); PROTEIN,URINE NEGATIVE (Neg); UROBILINOGEN,URINE 0.2 E.U/dL (0.2-1.0)
[2025-01-11 17:58] LABS: UA COLLECTION TYPE NON-SPECIFIED
[2025-01-11] MEDS ORDERED: CARI3CAP PO (18:02)
[2025-01-11] MEDS ORDERED: HYDR50TA65 PO (18:02)
[2025-01-11] MEDS ORDERED: ACET325T55 PO (18:02)
[2025-01-11] MEDS ORDERED: DICL100G59 TOP (18:02)
[2025-01-11] MEDS ORDERED: PROP40TA72 PO (18:02)
[2025-01-11] MEDS ORDERED: PRAZ1CAP5 PO (18:02)
[2025-01-11] MEDS ORDERED: acetaminophen 325mg tablet PO PRN (18:20)
[2025-01-11 18:22] LABS: BASOPHILS # (AUTO) 0.1 X10'3 (0-0.2); BASOPHILS % (AUTO) 0.7 % (0-1); EOSINOPHILS # (AUTO) 0.2 X10'3 (0-0.9); EOSINOPHILS % (AUTO) 1.9 % (0-6); HEMATOCRIT 38.7 % (42.0-52.0); HEMOGLOBIN 13.4 g/dl (14.0-17.9); LYMPHOCYTES # (AUTO) 3.3 X10'3 (1.1-4.8); LYMPHOCYTES % (AUTO) 41.2 % (21-51); MEAN CORPUSCULAR HEMOGLOBIN 30.3 PG (27.0-31.0); MEAN CORPUSCULAR HGB CONC 34.7 g/dL (33.0-36.5); MEAN CORPUSCULAR VOLUME 87.5 FL (78-98); MEAN PLATELET VOLUME 8.4 FL (7.4-10.4); MONOCYTES # (AUTO) 0.8 X10'3 (0-0.9); MONOCYTES % (AUTO) 9.7 % (2-12); NEUTROPHILS # (AUTO) 3.8 X10'3 (1.8-7.7); NEUTROPHILS % (AUTO) 46.5 % (42-75); PLATELET COUNT 157 X10'3 (140-440); RED BLOOD COUNT 4.42 X10'6 (4.70-6.10); RED CELL DISTRIBUTION WIDTH 15.9 % (11.5-14.5); WHITE BLOOD COUNT 8.1 X10'3 (4.5-11.0)
[2025-01-11 18:24] LABS: URINE AMPHETAMINE SCREEN NEGATIVE (Neg); URINE BARBITUATE SCREEN NEGATIVE (Neg); URINE BENZODIAZEPINES SCREEN NEGATIVE (Neg); URINE CANNABINOID SCREEN NEGATIVE (Neg); URINE COCAINE SCREEN NEGATIVE (Neg); URINE METHADONE SCREEN NEGATIVE (Neg); URINE OPIATE SCREEN NEGATIVE (Neg); URINE PHENCYCLIDINE SCREEN NEGATIVE (Neg)
[2025-01-11 18:44] LABS: ALANINE AMINOTRANSFERASE 59 U/L (12-78); ALBUMIN/GLOBULIN RATIO 1.1 (1.1-1.5); ALKALINE PHOSPHATASE 104 IU/L (46-116); ANION GAP 9 (8-16); ASPARTATE AMINO TRANSFERASE 53 U/L (10-37); BILIRUBIN,TOTAL 0.3 MG/DL (0.1-1.0); BLOOD UREA NITROGEN 11 MG/DL (7-18); BUN/CREATININE RATIO 12.4 (10.0-20.0); CALCIUM 9.1 MG/DL (8.5-10.1); CHLORIDE 102 MMOL/L (99-107); CREATININE 0.89 MG/DL (0.60-1.10); ETHANOL 82 MG/DL (<10); GLUCOSE 111 MG/DL (70-104); POTASSIUM 3.8 MMOL/L (3.5-5.1); SODIUM 136 MMOL/L (135-145); TOTAL CARBON DIOXIDE 25.5 MMOL/L (24-32); TOTAL PROTEIN 7.6 G/DL (6.4-8.2); eCRCL 96 ML/MIN; eGFR 90 ML/MIN
[2025-01-11] MEDS: CARIPRAZINE HYDROCHLORIDE 3 MG PO SCH (21:00)
[2025-01-11] MEDS: clozapine 100mg tablet PO SCH (22:39)
[2025-01-11] MEDS: prazosin 1mg capsule PO SCH (22:39)
[2025-01-12 04:52] VITALS: TEMP 98.4
[2025-01-12 07:50] LABS: THYROID STIMULATING HORMONE 0.73 ulU/ml (0.34-4.50)
[2025-01-12] MEDS: CARIPRAZINE HYDROCHLORIDE 1.5 MG PO SCH (08:00)
[2025-01-12 10:14] VITALS: BP 153/97; PULSE 96; O2SAT 97
[2025-01-12] MEDS: propranolol 40mg tablet PO SCH (10:44)
[2025-01-12] MEDS: oxybutynin 5mg tablet PO SCH (10:44)
[2025-01-12] MEDS: clozapine 100mg tablet PO SCH (10:44)
[2025-01-12] MEDS: hydrOXYzine 25 MG tablet PO PRN (12:01)
[2025-01-12 12:36] VITALS: RESP 16
== END 2025-01-12 17:18 | disposition still patient (30) ==
LOC: ER 16:46
DX: F79 Unspecified intellectual disabilities (principal); E11.9 Type 2 diabetes mellitus without complications; E78.00 Pure hypercholesterolemia, unspecified; F20.9 Schizophrenia, unspecified; I10 Essential (primary) hypertension; F15.90 Other stimulant use, unspecified, uncomplicated; Z91.030 Bee allergy status; Z20.822 Contact with and (suspected) exposure to COVID-19
CPT/HCPCS: 36415; 80053; 80305; 80320; 81003; 84443; 85025; 87811; 99284; Q0177

== ENCOUNTER 2025-02-06 19:13 | Emergency (ER) | payer MEDICAID ==
[~2025-02-06] VITALS: Ht 172.7 cm; Wt 100.0 kg
[~2025-02-06 19:13] MED LIST changes: +ACET325T55 PO; +CARI3CAP PO; +DICL100G59 TOP; +HYDR50TA65 PO; +PRAZ1CAP5 PO; +PROP40TA72 PO
[2025-02-06] MEDS: LORazepam 1 MG tablet PO ONE (23:03)
[2025-02-06] MEDS: OLANZapine 2.5MG tablet PO ONE (23:03)
[2025-02-06 23:42] VITALS: BP 140/80; PULSE 87; RESP 15; TEMP 98.4; O2SAT 99
== END 2025-02-06 23:46 | disposition home or self-care (01) ==
LOC: ER 19:14
DX: F41.9 Anxiety disorder, unspecified (principal); F20.9 Schizophrenia, unspecified; E11.9 Type 2 diabetes mellitus without complications; E78.00 Pure hypercholesterolemia, unspecified; I10 Essential (primary) hypertension; Z91.030 Bee allergy status; F15.90 Other stimulant use, unspecified, uncomplicated
CPT/HCPCS: 99283

== ENCOUNTER 2025-03-22 21:03 | Emergency (ER) | payer MEDICAID ==
[~2025-03-22] VITALS: Ht 172.7 cm; Wt 100.0 kg
[2025-03-22 23:55] VITALS: BP 126/92; PULSE 80; RESP 16; TEMP 97.8; O2SAT 98
[2025-03-23] MEDS ORDERED: HYDR-3686 PO (20:03)
== END 2025-03-22 23:45 | disposition home or self-care (01) ==
LOC: ER 21:04
DX: F20.9 Schizophrenia, unspecified (principal); I10 Essential (primary) hypertension; E78.00 Pure hypercholesterolemia, unspecified; E11.9 Type 2 diabetes mellitus without complications; F10.90 Alcohol use, unspecified, uncomplicated; F15.90 Other stimulant use, unspecified, uncomplicated; F41.9 Anxiety disorder, unspecified; Z79.899 Other long term (current) drug therapy; Z91.030 Bee allergy status; Z60.2 Problems related to living alone; Z56.0 Unemployment, unspecified; Y90.9 Presence of alcohol in blood, level not specified
CPT/HCPCS: 99281

== ENCOUNTER 2025-03-23 18:35 | Emergency (ER) | payer MEDICAID ==
[~2025-03-23] VITALS: Ht 172.7 cm; Wt 85.7 kg
[2025-03-23 18:41] VITALS: BP 142/65; PULSE 104; RESP 15; O2SAT 98
[2025-03-23] MEDS ORDERED: HYDR-3686 PO (20:03)
[2025-03-23] MEDS: hydrOXYzine 25 MG tablet PO ONE (20:13)
[2025-03-23 20:14] VITALS: TEMP 96.8
== END 2025-03-23 20:21 | disposition home or self-care (01) ==
LOC: ER 18:36
DX: F20.9 Schizophrenia, unspecified (principal); I10 Essential (primary) hypertension; E78.00 Pure hypercholesterolemia, unspecified; E11.9 Type 2 diabetes mellitus without complications; F41.9 Anxiety disorder, unspecified; Z91.030 Bee allergy status; Z79.899 Other long term (current) drug therapy; F15.90 Other stimulant use, unspecified, uncomplicated; Z72.89 Other problems related to lifestyle; Z56.0 Unemployment, unspecified
CPT/HCPCS: 99283; Q0177

== ENCOUNTER 2025-06-10 18:18 | Emergency (ER) | payer MEDICAID ==
[~2025-06-10] VITALS: Ht 172.7 cm; Wt 103.9 kg
--- NOTE | 2025-06-10 18:44 | Physician Documentation ---
History of Present Illness ~ Stated Complaint: RUCHI TAYLOR Time Seen by MD: 18:40 Primary Medical Doctor: justin patterson Source: patient Mode of Arrival: POV Exam Limitations: no limitations HPI 49-year-old male with history of schizophrenia saw his psychiatrist with the change to 1 of his psychiatric medications clozapine which he states he takes 200 mg in the morning 400 mg at night but he has been experiencing some increase in paranoia. The dosing has not reflected the increase of going up to 300 mg in the a.m. until Thursday and he now has been experiencing an even larger increase in paranoia. Patient denies any suicidal ideation or plan but he is scared he does not have readily available any of his support system today and came in for help. Patient states that he does hear voices and it does make him scared/more fearful of others. Medication Reconciliation Allergies: Coded Allergies: bee venom protein (honey bee) (Verified Allergy, Unknown, 03/23/25) Scheduled Cariprazine Hydrochloride (Vraylar), 1 CAP PO QAM, (Reported) Cariprazine Hydrochloride (Vraylar), 3 MG PO HS, (Reported) Clozapine (Clozapine), 1 TAB PO DAILY, (Reported) Clozapine* (Clozapine*), 400 MG PO HS, (Reported) Oxybutynin Chloride (Oxybutynin Chloride), 1 TAB PO BID, (Reported) Prazosin Hcl (Prazosin Hcl), 3 CAP PO BID, (Reported) Scheduled PRN Acetaminophen (Acetaminophen), 1 TAB PO Q8H PRN for pain, (Reported) Clozapine (Clozapine), 1 TAB PO BID PRN for for anxiety/agitation, (Reported) Diclofenac Sodium (Diclofenac Sodium), 2 GM TOP BID PRN for pain, (Reported) Hydroxyzine HCl (Hydroxyzine HCl), 50 MG PO BID PRN for anxiety, (Reported) Discontinued Medications Atorvastatin Calcium (Atorvastatin Calcium), 1 TAB PO DAILY, (Reported) Discontinued Reason: patient no longer taking Oxybutynin Chloride (Oxybutynin Chloride), 5 MG PO BID, (Reported) Discontinued Reason: patient no longer taking Propranolol Hcl* (Inderal*), 40 TAB PO BID, (Reported) Discontinued Reason: patient no longer taking Past Medical History Past Medical History: High Cholesterol, Hypertension, Diabetes, Anxiety, Schizophrenia Past Surgical History: noncontributory Alcohol Use: Heavy Drug Use: methamphetamine Lives with: Alone Lives In: Home Occupation: unemployed Review of Systems All Other Systems at this time: Reviewed and Negative Psychiatric: Reports: see HPI Physical Exam Physical Exam General: Alert, no apparent distress. HEENT: PERRL, EOMI, no injection, moist mucous membranes. Neck: Full range of motion. Respiratory: Lungs clear, no respiratory distress. Chest: No accessory muscle use. Cardiovascular: Regular rate and rhythm, no murmurs. Extremities: Normal range of motion, no deformity. Neurologic: Oriented x4. Psychiatric: Anxious appearing but alert and oriented. Answering questions appropriately thoughts without suicidal intent Skin: Normal color, warm and dry. No edema, no ecchymosis. Progress Results/Orders Results/Orders Vital Signs 06/10/25 06/10/25 06/10/25 18:33 19:22 19:22 Temp 98.8 Pulse 89 84 Resp 15 16 16 B/P (MAP) 129/86 131/84 (100) Pulse Ox 97 98 O2 Flow Rate 0 0 Medical Decision Making Findings Reviewed patient's med rec which indicates that he does take clozapine 400 mg at night 200 mg during the day which has now been increased to 300 mg per day patient has had increased paranoia. We will increase the 100 tonight and prescribe 100 mg for 3 days for patient at it to the a.m. dose as prescribed by his provider until he can obtain prescription by primary care. Departure Time of Disposition: 19:58 Disposition: 01 HOME / SELF CARE / HOMELESS Impression: Primary Impression: Paranoid schizophrenia Additional Impression: Hearing voices Condition: Stable Discharge Instructions: Medical Screening Exam Additional Instructions: You received your dose of the clozapine at 500 mg tonight. Continue taking at home 400 mg at night and increase to 300 mg every a.m.(200 mg + 100 mg) until you can [employer] your prescription from your provider on Thursday Referrals: NO PRIMARY CARE PROVIDER (PCP) Prescriptions Clozapine* (Clozapine*) 100 Mg Tablet 3 TAB PO DAILY for 2 Days, #6 TAB Prov: KAMINI GOMEZ NP 06/10/25 Education Educated: Patient Educated regarding: diagnosis, treatment, need for follow up Signature Scribe Signature: No scribe Attestation: The note accurately reflects work and decisions made by me.Kamini DIXON 06/10/25 18:44 KAMINI GOMEZ NP Jun 10, 2025 18:44
[2025-06-10 19:22] VITALS: BP 131/84; PULSE 84; RESP 16; O2SAT 98
[2025-06-10] MEDS ORDERED: CLOZ50TA9 PO (19:28)
[2025-06-10] MEDS ORDERED: OXYB5TAB21 PO (19:28)
[2025-06-10] MEDS ORDERED: CLOZ100T14 PO (19:57)
[2025-06-10 20:29] VITALS: TEMP 98.8
== END 2025-06-10 20:30 | disposition home or self-care (01) ==
LOC: ER 18:19
DX: F20.0 Paranoid schizophrenia (principal); E11.9 Type 2 diabetes mellitus without complications; E78.00 Pure hypercholesterolemia, unspecified; I10 Essential (primary) hypertension; F41.9 Anxiety disorder, unspecified; F15.90 Other stimulant use, unspecified, uncomplicated
CPT/HCPCS: 99283

== ENCOUNTER 2025-07-22 18:56 | Emergency (ER) | payer MEDICAID ==
[~2025-07-22] VITALS: Ht 172.7 cm; Wt 98.2 kg
[~2025-07-22 18:56] MED LIST changes: -ATOR20TA66 PO; +CLOZ50TA9 PO; -OXYB2.5T PO; +OXYB5TAB21 PO; -PROP40TA72 PO
[2025-07-22 19:03] VITALS: BP 119/86; PULSE 89; RESP 12; O2SAT 98
--- NOTE | 2025-07-22 21:02 | Physician Documentation ---
History of Present Illness ~ Chief Complaint: Mental Health Eval Stated Complaint: MENTAL HEALTH Time Seen by MD: 20:22 Primary Medical Doctor: justin patterson Source: patient Mode of Arrival: POV Exam Limitations: no limitations HPI She was past medical history of paranoid schizophrenia on multiple psychiatric medications presents for increased symptoms of paranoia. Denies suicidal or homicidal ideation. He states that he just did not want to be alone for the next couple of hours. He is hearing voices, which is his baseline. Furthermore, complaining of some lightheadedness. Medication Reconciliation Allergies: Coded Allergies: bee venom protein (honey bee) (Verified Allergy, Unknown, 03/23/25) Scheduled Cariprazine Hydrochloride (Vraylar), 1 CAP PO QAM, (Reported) Cariprazine Hydrochloride (Vraylar), 3 MG PO HS, (Reported) Clozapine (Clozapine), 1 TAB PO DAILY, (Reported) Clozapine* (Clozapine*), 400 MG PO HS, (Reported) Oxybutynin Chloride (Oxybutynin Chloride), 1 TAB PO BID, (Reported) Prazosin Hcl (Prazosin Hcl), 3 CAP PO BID, (Reported) Scheduled PRN Acetaminophen (Acetaminophen), 1 TAB PO Q8H PRN for pain, (Reported) Clozapine (Clozapine), 1 TAB PO BID PRN for for anxiety/agitation, (Reported) Diclofenac Sodium (Diclofenac Sodium), 2 GM TOP BID PRN for pain, (Reported) Hydroxyzine HCl (Hydroxyzine HCl), 50 MG PO BID PRN for anxiety, (Reported) Past Medical History Past Medical History: High Cholesterol, Hypertension, Diabetes, Anxiety, Schizophrenia Past Surgical History: noncontributory Alcohol Use: Heavy Drug Use: methamphetamine Lives with: Alone Lives In: Home Occupation: unemployed Review of Systems ROS Review of systems negative except specifically documented in HPI. Physical Exam Vital Signs: RN Vital Signs have been reviewed: Yes, Temperature: 98.6, Source: Temporal, Heart Rate: 89, Respiratory Rate: 12, BP: 119/86, Pulse Oximetry: 98, Weight: 98.180 Oxygen Flow Rate: 0 Pulse Oximetry Reflects: adequate oxygenation Physical Exam General: Awake, alert, oriented. No apparent distress Respiratory: Lungs are clear to auscultation bilaterally. No respiratory distress. Chest: Normal shape and size. No accessory muscle use. Cardiovascular: Regular rate and rhythm. S1-S2. No murmur, gallop, rub. Gastrointestinal: Abdomen is soft. Nontender to palpation. Bowel sounds present. Neurologic: Alert and oriented x4. Nonfocal. Moving all extremities. Psychiatric: He is shaking/twitching somewhat during exam. Moving his body continuously. Skin: Normal color. Warm and dry. Progress Results/Orders Results/Orders Orders - BARBARA WAITE NP Gait Test (07/22/25 ) Completed Orders - BARBARA WAITE NP Olanzapine Tablet (Zyprexa Tablet) (07/22/25 21:03) Medications Received in ER Medications (Trade) Dose Ordered Sig/Ariela Route PRN Reason Start Time Stop Time Status Last Admin Dose Admin (ZyPREXA tablet) 5 mg ONCE STAT PO 07/22/25 21:03 07/22/25 21:09 DC 07/22/25 21:22 5 MG Vital Signs 07/22/25 07/22/25 19:03 22:05 Temp 98.6 98.6 Pulse 89 Resp 12 B/P (MAP) 119/86 Pulse Ox 98 O2 Flow Rate 0 Medical Decision Making Findings Patient with known history of paranoid schizophrenia presented secondary to increase in symptoms. He states he is hearing voices. Denies suicidal or homicidal ideation. Has history of similar complaints in the emergency department. Most recent ER visits were reviewed. Patient has had very similar complaints in the past. He is pleasant and cooperative. Given a doses Zyprexa with improvement in symptoms and discharged home in stable condition. Is highly encouraged to follow up with his primary care provider as well as psychiatric provider. Differential Dx:Considerations: Include: Alcohol abuse, Anxiety, Bipolar disor ari, Depression, Homicidal, Panic disorder, Personality disorder, Schizophrenia, Substance abuse, Suicidal Departure Time of Disposition: 21:50 Disposition: 01 HOME / SELF CARE / HOMELESS Impression: Primary Impression: Paranoid schizophrenia Condition: Stable Additional Instructions: You were seen today for increased paranoia. Please follow up with your primary care provider. Recommend that you follow up within the next week. He may require medication adjustment if your symptoms continue. Please return for any new or worsening symptoms. Referrals: NO PRIMARY CARE PROVIDER (PCP) Education Educated: Patient Educated regarding: diagnosis, treatment, need for follow up Signature Scribe Signature: No scribe Attestation: The note accurately reflects work and decisions made by me.Barbara Mckinnon NP 07/23/25 00:24 This note was created with the assistance of voice recognition software whereby errors in grammar, syntax, and/or spelling may have occurred despite active proofreading efforts by the author. Please do not hesitate to contact the provider for clarification or for questions regarding the content of this document. BARBARA WAITE NP Jul 22, 2025 21:02
[2025-07-22 22:05] VITALS: TEMP 98.6
== END 2025-07-22 22:08 | disposition home or self-care (01) ==
LOC: ER 18:58
DX: F20.0 Paranoid schizophrenia (principal); E11.9 Type 2 diabetes mellitus without complications; E78.00 Pure hypercholesterolemia, unspecified; I10 Essential (primary) hypertension; F41.9 Anxiety disorder, unspecified; Z91.030 Bee allergy status; Z56.0 Unemployment, unspecified; Z79.899 Other long term (current) drug therapy; Z60.2 Problems related to living alone
CPT/HCPCS: 99283

== ENCOUNTER 2025-09-21 19:16 | Emergency (ER) | payer MEDICAID ==
[~2025-09-21] VITALS: Ht 172.7 cm; Wt 97.7 kg
[2025-09-21 19:18] VITALS: TEMP 97.6
--- NOTE | 2025-09-21 20:06 | Physician Documentation ---
History of Present Illness ~ Chief Complaint: Mental Health Eval Stated Complaint: EVAL Time Seen by MD: 20:02 Primary Medical Doctor: justin OLMOS Patient presents to the emergency room for evaluation of paranoia. History of schizophrenia and having significant delusions regarding people trying to get him as well as demons. States he that has not feel safe going home secondary to this paranoia. Medication Reconciliation Allergies: Coded Allergies: bee venom protein (honey bee) (Verified Allergy, Unknown, 09/21/25) Scheduled Clozapine (Clozapine Odt), 4 TAB PO HS, (Reported) Clozapine (Clozapine Odt), 3 TAB PO DAILY, (Reported) Clozapine* (Clozapine*), 400 MG PO HS, (Reported) Oxybutynin Chloride (Oxybutynin Chloride), 1 TAB PO BID, (Reported) Prazosin Hcl (Prazosin Hcl), 3 CAP PO BID, (Reported) Scheduled PRN Diclofenac Sodium (Diclofenac Sodium), 2 GM TOP BID PRN for pain, (Reported) Hydroxyzine HCl (Hydroxyzine HCl), 50 MG PO BID PRN for anxiety, (Reported) Discontinued Medications Acetaminophen (Acetaminophen), 1 TAB PO Q8H PRN for pain, (Reported) Discontinued Reason: patient no longer taking Cariprazine Hydrochloride (Vraylar), 1 CAP PO QAM, (Reported) Discontinued Reason: patient no longer taking Cariprazine Hydrochloride (Vraylar), 3 MG PO HS, (Reported) Discontinued Reason: patient no longer taking Clozapine (Clozapine), 1 TAB PO DAILY, (Reported) Discontinued Reason: patient no longer taking Clozapine (Clozapine), 1 TAB PO BID PRN for for anxiety/agitation, (Reported) Discontinued Reason: patient no longer taking Past Medical History Past Medical History: High Cholesterol, Hypertension, Diabetes, Anxiety, Schizophrenia Past Surgical History: noncontributory Alcohol Use: Heavy Drug Use: methamphetamine Lives with: Alone Lives In: Home Occupation: unemployed Review of Systems ROS All review of systems negative except as per HPI Physical Exam Vital Signs: Temperature: 97.6, Source: Temporal, Heart Rate: 86, Respiratory Rate: 20, BP: 140/98, Pulse Oximetry: 97, Weight: 97.700 Physical Exam General: Patient is awake, alert, oriented x4. Anxious Head: Normocephalic and atraumatic. Eyes: Conjunctival normal. EOMI. PERRL. ENT: Mucous membranes moist. Neck: Supple, trachea is midline. Chest: Clear to auscultation bilaterally without rales, rhonchi, or wheezes. There is no accessory muscle use or retractions. Cardiac: RRR without murmurs, gallops, or rubs. Psych: Paranoid, cooperative, pacing, poor eye contact Progress Results/Orders Results/Orders Orders - JAI CABAN MD Urinalysis (09/21/25 20:06) Med Rec (09/21/25 20:06) 1799.11 (09/21/25 20:06) Close Observation Level (09/21/25 20:06) Covid19 Binax Poc Result Entry (09/21/25 20:06) Substance Use Navigator (09/21/25 20:06) Regular Diet (09/22/25 Breakfast) Completed Orders - JAI CABAN MD Cbc/Diff (09/21/25 20:06) Drug Screen, Urine (09/21/25 20:06) Ethanol (09/21/25 20:06) TSH (09/21/25 20:06) BMP (09/21/25 20:06) Diazepam Tablet (Valium Tablet) (09/21/25 20:10) Vital Signs 09/21/25 19:18 Temp 97.6 Pulse 86 Resp 20 B/P (MAP) 140/98 Pulse Ox 97 Laboratory Tests Test 09/21/25 19:35 09/21/25 20:25 09/21/25 20:27 SARS-CoV-2 Antigen (Rapid) Negative White Blood Count 7.2 Red Blood Count 4.63 L Hemoglobin 13.5 L Hematocrit 39.7 L Mean Corpuscular Volume 85.7 Mean Corpuscular Hemoglobin 29.0 Mean Corpuscular Hemoglobin Concent 33.9 Red Cell Distribution Width 14.9 H Platelet Count 190 Mean Platelet Volume 7.7 Neutrophils (%) (Auto) 52.3 Lymphocytes (%) (Auto) 37.6 Monocytes (%) (Auto) 8.0 Eosinophils (%) (Auto) 1.6 Basophils (%) (Auto) 0.5 Neutrophils # (Auto) 3.8 Lymphocytes # (Auto) 2.7 Monocytes # (Auto) 0.6 Eosinophils # (Auto) 0.1 Basophils # (Auto) 0.0 CBC Comment Sodium Level 136 Potassium Level 3.8 Chloride Level 102 Carbon Dioxide Level 27.4 Anion Gap 7 L Blood Urea Nitrogen 5 L Creatinine 0.86 Estimated GFR/1.73 m2 > 90 BUN/Creatinine Ratio 5.8 L Glucose Level 133 H Calcium Level 8.7 Albumin 3.8 Thyroid Stimulating Hormone (TSH) 2.60 Chemistry Comments Ethyl Alcohol Level 73 H Urine Comment Urine Opiates Screen Negative Urine Methadone Screen Negative Urine Fentanyl Screen Negative Urine Barbiturates Screen Negative Urine Phencyclidine Screen Negative Urine Amphetamines Screen Negative Urine Benzodiazepines Screen Negative Urine Cocaine Screen Negative Urine Cannabinoids Screen Negative Drug Screen Comment Medical Decision Making Additional information obtaine: old records Findings Patient presents to the emergency room for evaluation of psychosis as per HPI. Given patient's obvious paranoia on physical exam I do feel he would benefit from 1798 that has I believe he is gravely disabled labs reviewed and that has no evidence of major pathologic derangements and patient is medically cleared for mental health evaluation. Differential Dx:Considerations: Include: Alcohol abuse, Anxiety, Bipolar disorder, Conversion disorder, Depression, Encephaloathy, Homicidal, Panic diso rder, Personality disorder, Schizophrenia, Substance abuse, Suicidal, Other Departure Disposition: 30 STILL A PATIENT Impression: Primary Impression: Acute psychosis Condition: Guarded Referrals: NO PRIMARY CARE PROVIDER (PCP) Signature Scribe Signature: No scribe Attestation: The note accurately reflects work and decisions made by me.Jai Caban MD 09/21/25 20:06 JAI CABAN MD Sep 21, 2025 20:06
[2025-09-21 20:31] LABS: MEAN PLATELET VOLUME 7.7 FL (7.4-10.4); RED CELL DISTRIBUTION WIDTH 14.9 % (11.5-14.5)
[2025-09-21 20:45] LABS: LEUKOCYTE ESTERASE ,URINE NEGATIVE (Neg); NITRITES, URINE NEGATIVE (Neg); OCCULT BLOOD,URINE NEGATIVE (Neg)
[2025-09-21 20:54] LABS: CREATININE 0.86 MG/DL (0.60-1.10); ETHANOL 73 MG/DL (<10); TOTAL CARBON DIOXIDE 27.4 MMOL/L (24-32); eCRCL 98 ML/MIN; eGFR > 90 ML/MIN
[2025-09-21 20:57] LABS: URINE AMPHETAMINE SCREEN NEGATIVE (Neg); URINE BARBITUATE SCREEN NEGATIVE (Neg); URINE BENZODIAZEPINES SCREEN NEGATIVE (Neg); URINE CANNABINOID SCREEN NEGATIVE (Neg); URINE COCAINE SCREEN NEGATIVE (Neg); URINE METHADONE SCREEN NEGATIVE (Neg); URINE OPIATE SCREEN NEGATIVE (Neg); URINE PHENCYCLIDINE SCREEN NEGATIVE (Neg)
[2025-09-21] MEDS ORDERED: CLOZ100T35 PO ×2 (20:57)
[2025-09-21 21:01] LABS: UA COLLECTION TYPE VOIDED
[2025-09-22] MEDS ORDERED: DICLOFENAC SODIUM 1% gel 1 50GM tube TP PRN (09:10)
[2025-09-22] MEDS ORDERED: CLOZ100T13 PO (09:44)
[2025-09-22 10:38] VITALS: BP 134/92; PULSE 91; RESP 14; O2SAT 99
== END 2025-09-22 10:41 | disposition home or self-care (01) ==
LOC: ER 19:16
DX: F23 Brief psychotic disorder (principal); E11.9 Type 2 diabetes mellitus without complications; E78.00 Pure hypercholesterolemia, unspecified; F41.9 Anxiety disorder, unspecified; F10.90 Alcohol use, unspecified, uncomplicated; Z56.0 Unemployment, unspecified; F15.90 Other stimulant use, unspecified, uncomplicated; I10 Essential (primary) hypertension; Z91.030 Bee allergy status; Z79.899 Other long term (current) drug therapy; Z60.2 Problems related to living alone; Y90.9 Presence of alcohol in blood, level not specified; Z20.822 Contact with and (suspected) exposure to COVID-19
CPT/HCPCS: 36415; 80048; 80305; 80320; 81003; 84443; 85025; 87811; 99284